=== PATIENT | female | born 1995 | race Caucasian/White ===

== ENCOUNTER 2025-02-17 01:31 | Emergency (ER) | payer OTHER ==
[~2025-02-17] VITALS: Ht 157.5 cm; Wt 68.0 kg
[2025-02-17] MEDS ORDERED: ONDANSETRON 4 MG TAB.RAPDIS ONE (02:53)
[2025-02-17] MEDS: ALPRAZOLAM 0.5 MG TABLET PO ONE (02:53)
[2025-02-17] MEDS: ONDANSETRON 4 MG TAB.RAPDIS SL ONE (02:53)
[2025-02-17] MEDS ORDERED: ALPRAZOLAM 0.5 MG TABLET ONE (02:53)
[2025-02-17 03:14] VITALS: BP 102/70; TEMP 98.1; O2SAT 98
== END 2025-02-17 03:15 | disposition home or self-care (01) ==
LOC: ER 01:37
DX: F41.9 Anxiety disorder, unspecified (principal); R04.0 Epistaxis; R11.0 Nausea
CPT/HCPCS: Q0162